=== PATIENT | male | born 1995 | race American Indian/Alaskan Native ===

== ENCOUNTER 2017-05-09 17:28 | Emergency (ER) | payer OTHER ==
[2017-05-09] MEDS ORDERED: AUGMENTIN 875 MG PO ONE (21:17)
[2017-05-09] MEDS ORDERED: MOTRIN PO ONE (21:19)
--- NOTE | 2017-05-09 21:26 | Emergency Department Report ---
ED ENT HPI - General Chief complaint: Earache Stated complaint: LEFT EAR PAIN/DIZZY Time Seen by Provider: 05/09/17 20:45 Source: patient, family Mode of arrival: Ambulatory Limitations: No Limitations - History of Present Illness Initial comments: 21-year-old male past medical history none presents with complaint of approximately 2 days of both right and left earache. Patient states that he started feeling pain in his right ear which then traveled to his left ear. States his hearing is slightly muffled. Denies fevers chills sore throat does complain of sinus congestion. MD complaint: ear pain Onset/Timin -: days(s) Location: R ear, L ear Severity: moderate Severity scale (0 -10): 6 Quality: aching Consistency: constant Improves with: none Worsens with: none - Related Data Previous Rx's Medication Instructions Recorded Last Taken Type Acetaminophen/Codeine [Tylenol 1 tab PO Q6H PRN #5 tab 05/09/17 Unknown Rx /Codeine # 3 tab] Amoxicillin 500 mg PO Q8H #30 capsule 05/09/17 Unknown Rx Ibuprofen [Motrin] 800 mg PO Q8HR PRN #20 tablet 05/09/17 Unknown Rx Neomy/Polymyx B/Hc (Otic) Soln 4 drops OTIC TID #1 bottle 05/09/17 Unknown Rx [Cortisporin (Otic) Soln] Allergies Allergy/AdvReac Type Severity Reaction Status Date / Time No Known Allergies Allergy Unverified 05/09/17 17:50 ED Dental HPI - General Chief complaint: Earache Stated complaint: LEFT EAR PAIN/DIZZY Time Seen by Provider: 05/09/17 20:45 Source: patient, family Mode of arrival: Ambulatory Limitations: No Limitations - Related Data Previous Rx's Medication Instructions Recorded Last Taken Type Acetaminophen/Codeine [Tylenol 1 tab PO Q6H PRN #5 tab 05/09/17 Unknown Rx /Codeine # 3 tab] Amoxicillin 500 mg PO Q8H #30 capsule 05/09/17 Unknown Rx Ibuprofen [Motrin] 800 mg PO Q8HR PRN #20 tablet 05/09/17 Unknown Rx Neomy/Polymyx B/Hc (Otic) Soln 4 drops OTIC TID #1 bottle 05/09/17 Unknown Rx [Cortisporin (Otic) Soln] Allergies Allergy/AdvReac Type Severity Reaction Status Date / Time No Known Allergies Allergy Unverified 05/09/17 17:50 ED Review of Systems ROS: Stated complaint: LEFT EAR PAIN/DIZZY Other details as noted in HPI Constitutional: denies: chills, fever Eyes: denies: eye pain, eye discharge, vision change ENT: ear pain. denies: throat pain Respiratory: denies: cough, shortness of breath, wheezing Cardiovascular: denies: chest pain, palpitations Endocrine: no symptoms reported Gastrointestinal: denies: abdominal pain, nausea, diarrhea Genitourinary: denies: urgency, dysuria Musculoskeletal: denies: back pain, joint swelling, arthralgia Skin: denies: rash, lesions Neurological: denies: headache, weakness, paresthesias Psychiatric: denies: anxiety, depression Hematological/Lymphatic: denies: easy bleeding, easy bruising ED Past Medical Hx - Past Medical History Previous Medical History?: No - Surgical History Past Surgical History?: No - Social History Smoking Status: Never Smoker Substance Use Type: Marijuana - Medications Home Medications: Home Medications Medication Instructions Recorded Confirmed Last Taken Type Acetaminophen/Codeine [Tylenol 1 tab PO Q6H PRN #5 tab 05/09/17 Unknown Rx /Codeine # 3 tab] Amoxicillin 500 mg PO Q8H #30 capsule 05/09/17 Unknown Rx Ibuprofen [Motrin] 800 mg PO Q8HR PRN #20 tablet 05/09/17 Unknown Rx Neomy/Polymyx B/Hc (Otic) Soln 4 drops OTIC TID #1 bottle 05/09/17 Unknown Rx [Cortisporin (Otic) Soln] ED Physical Exam - General Limitations: No Limitations General appearance: alert, in no apparent distress - Head Head exam: Present: atraumatic, normocephalic - Eye Eye exam: Present: normal appearance, PERRL, EOMI - ENT ENT exam: Present: mucous membranes moist - Expanded ENT Exam Expanded TM/Canal exam: Erythema: Right TM, Left TM, Bulging: Right TM, Left TM (patient has injection of both tympanic membranes and bulging of the eardrums bilaterally. Overall hearing is intact there is no mastoid tenderness bilaterally.) Mouth exam: Present: normal external inspection Teeth exam: Present: normal inspection Throat exam: Positive: normal inspection - Neck Neck exam: Present: normal inspection - Respiratory Respiratory exam: Present: normal lung sounds bilaterally. Absent: respiratory distress - Cardiovascular Cardiovascular Exam: Present: regular rate, normal rhythm. Absent: systolic murmur, diastolic murmur, rubs, gallop - GI/Abdominal GI/Abdominal exam: Present: soft, normal bowel sounds - Rectal Rectal exam: Present: deferred - Extremities Exam Extremities exam: Present: normal inspection - Back Exam Back exam: Present: normal inspection - Neurological Exam Neurological exam: Present: alert, oriented X3 - Psychiatric Psychiatric exam: Present: normal affect, normal mood - Skin Skin exam: Present: warm, dry, intact, normal color. Absent: rash ED Course Vital Signs 05/09/17 17:50 Temperature 97.6 F Pulse Rate 100 H Respiratory 16 Rate Blood Pressure 121/73 O2 Sat by Pulse 98 Oximetry ED Medical Decision Making - Medical Decision Making A/P: Otitis media 1-Motrin 800mg when necessary, 10 day course of amoxicillin. Patient states that he does not have enough money for expensive medicines is asking me to give him medicines that will treat his symptoms that are affordable. Amoxicillin is an affordable first line agent for otitis media and therefore I will prescribe this to the patient 2-topical Cortisporin 3-follow up with primary care and ENT 4- patient has no clinical signs of mastoiditis. I advised patient to return to the ED if he experiences fevers chills worsened earache or significantly muffled hearing despite using the medicines I'm providing him. I advised the patient to follow up with ENT. Critical care attestation.: If time is entered above; I have spent that time in minutes in the direct care of this critically ill patient, excluding procedure time. ED Disposition Clinical Impression: Otitis media Qualifiers: Otitis media type: suppurative Chronicity: acute Laterality: bilateral Recurrence: not specified as recurrent Spontaneous tympanic membrane rupture: without spontaneous rupture Qualified Code(s): H66.003 - Acute suppurative otitis media without spontaneous rupture of ear drum, bilateral Disposition: TO HOME OR SELFCARE Is pt being admited?: No Does the pt Need Aspirin: No Condition: Stable Instructions: Otitis Media (ED), Earache (ED), Anesthetics (Into the ear) Prescriptions: Acetaminophen/Codeine [Tylenol /Codeine # 3 tab] 1 tab PO Q6H PRN #5 tab PRN Reason: Pain Amoxicillin 500 mg PO Q8H #30 capsule Ibuprofen [Motrin] 800 mg PO Q8HR PRN #20 tablet PRN Reason: Pain Neomy/Polymyx B/Hc (Otic) Soln [Cortisporin (Otic) Soln] 4 drops OTIC TID #1 bottle Referrals: DAISY BOO MD [Staff Physician] - [facility] - 3-5 Days ENT [facility] [Provider Group] - 3-5 Days [facility] [place] [Outside] - 3-5 Days Time of Disposition: 21:31
[2017-05-09 21:52] VITALS: BP 128/82
== END 2017-05-09 21:51 | disposition home or self-care (01) ==
LOC: ED 17:28
DX: H66.003 Acute suppurative otitis media without spontaneous rupture of ear drum, bilateral (principal); F12.10 Cannabis abuse, uncomplicated
CPT/HCPCS: 99282